=== PATIENT | male | born 1965 | race Caucasian/White ===

== ENCOUNTER → 2019-06-28 09:42 | Outpatient (CLI) | payer BC, SELFPAY ==
[2019-06-28 10:59] LABS: Alanine Aminotransferase 33 IU/L (<50); Albumin 4.1 g/dL (3.5-5.0); Albumin Globulin Ratio 1.4 (1.0-2.8); Alkaline Phosphatase 72 U/L (38-126); Aspartate Aminotransferase 23 IU/L (17-59); BUN Creatinine Ratio 17.8 (6-22); Bilirubin Total 0.6 mg/dL (0.2-1.3); Blood Urea Nitrogen 16 mg/dL (9-20); Calcium 9.2 mg/dL (8.4-10.2); Carbon Dioxide 26 mmol/L (22-32); Chloride 106 mmol/L (98-107); Cholesterol 143 mg/dL (140-199); Estimated Glomerular Filt Rate > 60.0 mL/min (>60); Globulin 2.9 g/dL (1.7-4.1); Glucose 101 mg/dL (70-100); HDL Cholesterol 42 mg/dL (40-60); HEMOLYSIS < 15 (0-50); LDL Cholesterol Calculated 72 mg/dL (<100); Potassium 4.4 mmol/L (3.4-5.1); Sodium 141 mmol/L (137-145); Triglycerides 143 mg/dL (35-150)
[2019-06-28 11:28] LABS: Prostate Specific Antigen Scrn 0.862 ng/mL (0.1-4.0)
== END ==
PROVIDERS: PCP Internal Medicine; Referring Provider Internal Medicine; Visit Provider Internal Medicine
DX: Z12.5 Encounter for screening for malignant neoplasm of prostate (principal); Z13.1 Encounter for screening for diabetes mellitus; Z13.220 Encounter for screening for lipoid disorders; Z13.6 Encounter for screening for cardiovascular disorders
CPT/HCPCS: 36415; 80053; 80061; G0103

== ENCOUNTER → 2020-03-13 10:45 | Outpatient (CLI) | payer BC, SELFPAY ==
[2020-03-13 14:17] LABS: COVID19 -Nasal RAPID Negative (Negative)
== END ==
PROVIDERS: PCP Internal Medicine; Visit Provider Specialist
DX: Z01.812 Encounter for preprocedural laboratory examination (principal); Z12.11 Encounter for screening for malignant neoplasm of colon; Z11.59 Encounter for screening for other viral diseases
CPT/HCPCS: 87635; C9803

== ENCOUNTER 2020-03-14 08:14 | Day surgery (SDC) | payer BC, SELFPAY ==
[2020-03-14] VITALS (9 sets, daily range): BP systolic 121–141; BP diastolic 76–96; PULSE 69–88; RESP 9–16; TEMP 36.3–36.8; O2SAT 92–98; BMI 30.2
[2020-03-14] MEDS: LACTATED RINGERS 1,000 ML 200 ML IV (08:31)
--- NOTE | 2020-03-14 10:27 | P.HP_ITS ---
History of Present Illness History of Present Illness Date Patient Seen: 03/14/20 Time Patient Seen: 10:10 Chief complaint: SDC Narrative: The patient is a gentleman here for screening colonoscopy. He has a high risk patient due to a prior history of polyps and the fact that his mother is from colon cancer. His last colonoscopy was 5 years ago. Patient History Medical History BPH w urinary obs/LUTS (Chronic) Family & Social History Social History: household members spouse,children Tobacco & Substance use: Smoking Status Never smoker alcohol intake current alcohol intake frequency a few times a week Substance Use Type does not use Meds Home Medications and Allergies Home Medications Medication Instructions Recorded Confirmed Type ranitidine HCl 150 mg tablet 150 mg PO DAILY 05/31/19 03/14/20 History tamsulosin 0.4 mg capsule 0.4 mg PO DAILY #90 cap 10/05/19 03/14/20 Rx Allergies Allergy/AdvReac Type Severity Reaction Status Date / Time No Known Drug Allergies Allergy Verified 03/14/20 08:24 Review of Systems Review of Systems ROS: Yes All systems reviewed with the patient and are negative except as other aguero documented Exam Vital Signs (past 8 hours): - 03/14/20 08:32 Temperature 98.2 F Pulse Rate 86 Respiratory Rate 15 Blood Pressure 133/84 Pulse Oximetry 98 Oxygen Delivery Method Room Air Narrative Exam Narrative: Pleasant cooperative patient no apparent distress. Lungs are clear to auscultation. No rales or rhonchi. Heart regular rate and rhythm no murmur gallop. Abdomen is soft nontender without mass. No obvious hernias. Patient is alert and oriented x3. Assessment & Plan Assessment & Plan narrative: The patient for a screening colonoscopy. I have discussed the procedure with them. Risks of bleeding, perforation which would necessitate major operation, failure to find remove all lesions, the potential tattoo were all discussed. All questions were answered. They wished to proceed.
--- NOTE | 2020-03-14 10:29 | PM.PREOP ---
Pre-operative Note COVID-19 COVID-19 status: Negative Result date/Date tested (Pos, Neg/Pending): 03/11/20 Interval Note History & Physical reviewed/Exam performed by Physician: Yes Changes to H&P: No ASA Class (for procedural sedation): I
[2020-03-14] MEDS: MIDAZOLAM 5 MG/5 ML VIAL IV (10:42)
[2020-03-14] MEDS: fentaNYL 250 MCG/5 ML INJ IV (10:42)
--- NOTE | 2020-03-14 10:58 | P.OP.ENDO_ITS ---
Operative Date/Time/Diagnoses Date of procedure: 03/14/20 Time of procedure: 10:59 Pre-op diagnosis: Screening exam in high risk patient. This is 5 years since his last exam. Mother of colon cancer. He has had a polyp removed in the past. Procedure & Clinicians Study performed: Colonoscopy Same procedure as scheduled: Yes Indications: Screening Surgeon: Dany Oleary Procedure Notes SCOAP/Timeout: Performed Procedure in detail: The patient was placed in the left lateral decubitus position and underwent IV sedation directed by the surgeon consisting of fentanyl and Versed. Digital exam was unremarkable. I could not feel his pros lozoya well.. The scope was inserted and advanced through the rectum into the sigmoid, descending, transverse, and ascending colon. Patient had diverticulosis of the sigmoid colon. The cecum was reached identified by the ileocecal valve and the appendiceal opening. The scope was gradually brought out. No Polyps were found. The scope ultimately was retroflexed in the rectum. The appearance was notable for moderately large hemorrhoids without ulceration. The scope was removed and the patient tolerated the procedure well. The prep was good Scope withdrawal time: 6 minutes Sedation minutes: 26 Findings: diverticulosis (Sigmoid) and internal hemorrhoids Specimen(s): none sent Complications: none Post-procedure Recommendations: Colonscopy in 5 years Follow up: as needed Disposition: PACU
--- NOTE | 2020-03-14 11:07 | SUR.PHASEI ---
received to PACU after MAC at 1100. Report from ELMER Putnam. Nasal trumpet in place. No further airway assistance required. 1105 - Nasal trumpet removed.
== END 2020-03-14 11:43 | disposition home or self-care (01) ==
PROVIDERS: PCP Internal Medicine; Referring Provider Internal Medicine; Visit Provider Specialist
PROC: 0DJD8ZZ Inspection of Lower Intestinal Tract, Via Natural or Artificial Opening Endoscopic (ICD-10-PCS; CPT 45378; 2020-03-14 09:15)
DX: Z12.11 Encounter for screening for malignant neoplasm of colon (principal); Z86.010 Personal history of colon polyps; Z80.0 Family history of malignant neoplasm of digestive organs; N40.1 Benign prostatic hyperplasia with lower urinary tract symptoms; K64.8 Other hemorrhoids; K57.30 Diverticulosis of large intestine without perforation or abscess without bleeding; N13.8 Other obstructive and reflux uropathy
CPT/HCPCS: 45378; 99152; 99153; J2250; J3010

== ENCOUNTER → 2021-04-05 09:19 | Outpatient (CLI) | payer BC, SELFPAY ==
[2021-04-05 10:10] LABS: COVID19 -Nasal RAPID Negative (Negative)
== END ==
PROVIDERS: PCP Internal Medicine; Referring Provider Internal Medicine; Visit Provider Internal Medicine
DX: Z20.822 Contact with and (suspected) exposure to COVID-19 (principal)
CPT/HCPCS: 87635; C9803

== ENCOUNTER → 2021-04-06 06:58 | Outpatient (CLI) | payer BC, SELFPAY ==
--- NOTE | 2021-04-11 09:42 | PM.PFT.1 ---
Pulmonary Function Test Referral & Results Date Patient Seen: 04/06/21 Requesting provider: Kirill Dewitt Results: The spirometry demonstrates an FVC of 4.18 L which is 75% of predicted. The FEV1 was measured at 3.36 L which is 79% of predicted. The FEV1/FVC ratio was 80 which is 105% of predicted. Following the administration of bronchodilator there was no appreciable change Lung volumes show an SVC of 4.39 L which is 81% of predicted. The diffusing capacity was measured at 31.54 which is 83% of predicted. No hemoglobin value was provided, so no correction for potential anemia could be made, if appropriate. The maximum voluntary ventilation was slightly reduced Interpretation: This study demonstrates slight reduced FEV1 with preserved FEV1/FVC ratio which might suggest the presence of obstructive lung disease however this is not supported by flow volume loop shape. There is really no evidence of any significant reversibility after bronchodilator either There is minimal reduction in lung volumes suggesting the possibility minimal restrictive lung disease There is also minimal reduction diffusing capacity suggesting possibility of minimal disease at the capillary alveolar level Clinical correlation suggested
== END ==
PROVIDERS: PCP Internal Medicine; Referring Provider Internal Medicine; Visit Provider Internal Medicine
DX: R06.02 Shortness of breath (principal); J98.8 Other specified respiratory disorders; R06.2 Wheezing
CPT/HCPCS: 94060; 94726; 94729

== ENCOUNTER → 2022-06-25 16:27 | Outpatient (CLI) | payer BC, SELFPAY ==
[2022-06-25 18:16] LABS: Alanine Aminotransferase 27 IU/L (<50); Albumin 4.1 g/dL (3.5-5.0); Albumin Globulin Ratio 1.4 (1.0-2.8); Alkaline Phosphatase 67 U/L (38-126); Aspartate Aminotransferase 23 IU/L (17-59); BUN Creatinine Ratio 12.6 (6-22); Bilirubin Total 0.4 mg/dL (0.2-1.3); Blood Urea Nitrogen 12 mg/dL (9-20); Calcium 8.4 mg/dL (8.4-10.2); Carbon Dioxide 29 mmol/L (22-32); Chloride 105 mmol/L (98-107); Estimated Glomerular Filt Rate > 60 mL/min (>60); Glucose 91 mg/dL (70-100); HEMOLYSIS < 15 (0-50); Potassium 3.9 mmol/L (3.4-5.1); Sodium 142 mmol/L (137-145); Total Protein 7.1 g/dL (6.3-8.2)
[2022-06-25 18:53] LABS: Prostate Specific Antigen Scrn 2.87 ng/mL (0.1-4.0)
== END ==
PROVIDERS: PCP Internal Medicine; Referring Provider Internal Medicine; Visit Provider Internal Medicine
DX: Z12.5 Encounter for screening for malignant neoplasm of prostate (principal); Z13.220 Encounter for screening for lipoid disorders; Z13.6 Encounter for screening for cardiovascular disorders; Z79.899 Other long term (current) drug therapy
CPT/HCPCS: 36415; 80053; G0103

== ENCOUNTER → 2023-07-04 11:02 | Outpatient (CLI) | payer BC, SELFPAY ==
[2023-07-04 12:51] LABS: Alanine Aminotransferase 28 IU/L (<50); Albumin Globulin Ratio 1.4 (1.0-2.8); Alkaline Phosphatase 75 U/L (38-126); Aspartate Aminotransferase 23 IU/L (17-59); BUN Creatinine Ratio 17.1 (6-22); Bilirubin Total 0.8 mg/dL (0.2-1.3); Blood Urea Nitrogen 18 mg/dL (9-20); Carbon Dioxide 29 mmol/L (22-32); Chloride 108 mmol/L (98-107); Cholesterol 134 mg/dL (140-199); Estimated Glomerular Filt Rate > 60 mL/min (>60); Globulin 2.9 g/dL (1.7-4.1); Glucose 91 mg/dL (80-110); HDL Cholesterol 42 mg/dL (40-60); HEMOLYSIS < 15 (0-50); LDL Cholesterol Calculated 71 mg/dL (<100); Potassium 4.6 mmol/L (3.4-5.1); Sodium 140 mmol/L (137-145); Total Protein 6.9 g/dL (6.3-8.2); Triglycerides 105 mg/dL (35-150)
[2023-07-04 13:20] LABS: Prostate Specific Antigen Scrn 1.34 ng/mL (0.1-4.0)
== END ==
PROVIDERS: PCP Internal Medicine; Referring Provider Internal Medicine; Visit Provider Internal Medicine
DX: Z13.6 Encounter for screening for cardiovascular disorders (principal); Z13.220 Encounter for screening for lipoid disorders; Z12.5 Encounter for screening for malignant neoplasm of prostate; E29.1 Testicular hypofunction
CPT/HCPCS: 36415; 80053; 80061; G0103

== ENCOUNTER → 2024-09-13 11:21 | Outpatient (CLI) | payer BC, SELFPAY | PROVIDERS: PCP Internal Medicine; Referring Provider Internal Medicine; Visit Provider Internal Medicine | DX: Z12.5 Encounter for screening for malignant neoplasm of prostate (principal) | CPT/HCPCS: 36415; G0103 ==